=== PATIENT | female | born 1975 | race Hispanic/Latino ===

== ENCOUNTER 2017-05-22 10:48 | Emergency (ER) | payer OTHER ==
[~2017-05-22] VITALS: Ht 157.5 cm; Wt 67.3 kg
[~2017-05-22 10:48] MED LIST: CEPH500C PO; PROM25SU46 RC
[2017-05-22 11:02] VITALS: BP 121/72; PULSE 86; RESP 26; O2SAT 100
--- NOTE | 2017-05-22 11:38 | ED.REPORT ---
HPI-Abd Pain F 40 and Over Date of Service May 22, 2017 ED Provider: Moe Mancera MD Pt is a 41 year old female who is 37 weeks presenting to the ED from the [facility] due to suprapubic abdominal pain radiating to the back onset 3 weeks ago. The pain is currently in the left mid abdomen. Associated symptoms include weakness, trouble sleeping, trouble walking, nausea, vomiting, and diarrhea (for months). She was once 20 years ago, and denies any contractions, vaginal bleeding, fever, or any other symptoms at this time. Nursing Notes Stated Complaint: STOMACH PAIN/SENT FROM [facility] Chief Complaint: Female Abdominal Pain Nursing Notes Reviewed: Yes Allergies: Coded Allergies: codeine (Verified Allergy, Unknown, 10/29/16) Scheduled Cephalexin (Cephalexin) 500 Mg Capsule 500 MG PO TID Cephalexin (Keflex) 500 Mg Capsule 500 MG PO QID Promethazine HCl (Phenergan) 25 Mg Supp.rect 25 MG RC QID General Time Seen by MD: 11:14 Chief Complaint Abdominal pain Hx Obtained From: Patient Arrived By: Walk-in Sudden in Onset?: No Onset Occurred: More than a week ago... (3 weeks) Symptom Duration: Since onset Progression since Onset: Constant Location: : Diffuse Quality: Painful Severity: Current: Severe Severity: Maximum: Severe Recent Healthcare: No recent hospitalization, Recent doctor visit Similar Sx Previous: No Past Medical History Past Medical History Anxiety Chronic neck pain 37 weeks Reports: GERD Smoking History Never Smoker Social History Alcohol Use: Denies alcohol use Drug Use: THC Other Social History: Good social support Ambulatory Status Independent Review of Systems Constitutional: Reports: Weakness - generalized, Denies: Fever GI: Reports: Abdominal pain, Diarrhea, Nausea, Vomiting Female: Denies: Vaginal bleeding - abnl Complete sys rev & neg: except as marked. Physical Exam Vital Signs Vital Signs (First) Date Time Temp Pulse Resp B/P Pulse Ox O2 Delivery O2 Flow Rate FiO2 05/22/17 11:02 36.5 86 26 121/72 100 Room Air Initial VS: Reviewed Head / Eyes: Atraumatic, Normocephalic, PERRL ENT: Mucous membranes moist, Conjunctiva normal, No scleral icterus Extremities: Vascular intact, Neuro intact, No swelling, No tenderness Skin: Warm, Dry, No cyanosis Neurologic: Alert, Oriented, Nonfocal Psychiatric: Mood/affect normal, Behavior normal, Normal thought content General/Constitutional: Awake, Alert, Well appearing Respiratory / Chest: Breath sounds NL, Breath sounds = bilat, No respiratory distress, No rales, No rhonchi, No wheezing, No stridor Cardiovascular: Heart rate NL, Regular rhythm, Heart sounds NL, Peripheral circulation NL Abdomen: Non-tender, No guarding, No rebound Gravid uterus. Back: Atraumatic, Inspection NL Interpretation & Diagnostics Urine Tox: Positive for Opiates and Marijuana, also positive leukocytes Lab Results Interpretation Result Diagram: 05/22/17 1205 05/22/17 1205 Test 05/22/17 12:05 05/22/17 12:40 White Blood Count 6.8th/mm3 (3.8-10.1) Red Blood Count 3.57mil/mm3 (3.90-5.20) Hemoglobin 9.9g/dL (12.0-15.6) Hematocrit 30.6% (35.0-46.0) Mean Corpuscular Volume 85.7fL (81-100) Mean Corpuscular Hemoglobin 27.7pg (27.0-35.0) Mean Corpuscular Hemoglobin Concent 32.4% (32.0-37.0) Red Cell Distribution Width 14.0% (12.3-15.4) Platelet Count 306bil/L (150-400) Neutrophils (%) (Auto) 71.9% (40-74) Lymphocytes (%) (Auto) 21.9% (14-46) Monocytes (%) (Auto) 5.4% (4-12) Eosinophils (%) (Auto) 0.4% (0-5) Basophils (%) (Auto) 0.1% (0-3) Sodium Level 135mEq/L (134-144) Potassium Level 3.9mEq/L (3.5-5.2) Chloride Level 101mEq/L (97-108) Carbon Dioxide Level 18mmol/L (18-29) Blood Urea Nitrogen 7mg/dL (6-24) Creatinine 0.52mg/dL (0.57-1.00) Estimat Glomerular Filtration Rate 187mL/min (>59) Glucose Level 95mg/dL (60-99) Calcium Level 8.9mg/dL (8.5-10.1) Total Bilirubin 0.3mg/dL (0.0-1.2) Aspartate Amino Transf (AST/SGOT) 16U/L (0-50) Alanine Aminotransferase (ALT/SGPT) 11U/L (0-32) Alkaline Phosphatase 138U/L (25-150) Total Protein 6.4g/dL (6.4-8.4) Albumin 3.1g/dL (3.4-5.0) Lipase 28U/L (13-60) Urine Color Yellow (YELLOW) Urine Appearance Hazy (CLEAR,HAZY) Urine pH 6.5 (5.0-8.0) Urine Specific [place] 1.015 (1.003-1.035) Urine Protein Tracemg/dL (NEG,TRACE) Urine Glucose (UA) Negativemg/dL (NEGATIVE) Urine Ketones Negativemg/dL (NEGATIVE) Urine Occult Blood Negative (NEGATIVE) Urine Nitrite Negative (NEGATIVE) Urine Bilirubin Negative (NEGATIVE) Urine Urobilinogen Normalmg/dL (NORMAL) Urine Leukocyte Esterase Negative (NEGATIVE) Urine RBC 0-2/hpf (0-2) Urine WBC 0-5/hpf (0-5) Urine Epithelial Cells Many/hpf (NONE-MOD) Urine Crystals None seen (NONE SEEN) Urine Bacteria Many/hpf (NONE-FEW) Urine Hyaline Casts None/lpf (NONE) Urine Granular Casts None seen (NONE SEEN) Urine Waxy Casts None seen (NONE SEEN) Urine Red Blood Cell Casts None seen (NONE SEEN) Urine White Blood Cell Casts None seen (NONE SEEN) Urine Mucus None seen (None Seen) Urine Trichomonas None seen (NONE SEEN) Urine Yeast None (NONE SEEN) Urinalysis Comment None Urine Culture Reflexed Indicated Re-Eval/Medical Decision Med Decision/Clinical Course 41-year-old female 37 weeks presenting with lower abdominal pain 3 weeks. Reports it is constant and worse with movement. She reports she has been seen with this multiple times and has been told it is round ligament pain. She was seen by the birthing center and cleared today. She denies any vaginal bleeding, discharge, contractions. Her abdominal exam is nontender. Her labs are stable. Urine suggests possible UTI. She will be treated with Keflex for this. She is no signs of pyelonephritis. Suspect her pain is most likely round ligament pain. She will follow up with [facility]. Return precautions given. Re-Evaluation/Progress : Time of Eval: 13:11 Patient Status: Condition improved Re-Evaluation/Progress Note: Discussed plan for discharge. Pt understands and agrees with plan. Counseled Regarding: Diagnosis, Lab results, Need for follow-up, When/why to return to ED Discharge & Departure Primary Impression: Round ligament pain Additional Impression: UTI (urinary tract infection) Urinary tract infection type: site unspecified Hematuria presence: without hematuria Qualified Code: N39.0 - Urinary tract infection, site not specified Disposition: Home Discharge Condition All VS Reviewed: Yes Condition: Improved Additional Instructions: Your labs looked fine today, and your urine shows slight signs of a urinary tract infection. The most likely cause for your abdominal pain is round ligament pain. Take the antibiotic as prescribed for the infection, and take Tylenol as prescribed for your pain. Follow up with your OBGYN if your symptoms persist. Return to the ER for any back pain, vaginal bleeding, discharge, contractions, fever, vomiting, or other concerning symptoms. Referrals: Jace Miller MD (PCP) Phi Attestation Portions of this note were transcribed by Jennifer Dong. I, Dr. Mancera personally performed the history, physical exam and medical decision-making; I reviewed and confirmed the accuracy of the information in the transcribed note. Signed by: Phi Mcarthur, 05/22/2017 at 1320. copies to: Jace Miller MD, Ben M MD May 22, 2017 11:38 JENNIFER DONG May 22, 2017 11:46
[2017-05-22] MEDS ORDERED: LidocaineVisc 2%:Antacid 1:1 10 mL Syringe PO ONE (11:50)
[2017-05-22 12:20] LABS: BASOPHILS % (AUTO) 0.1 % (0-3); EOSINOPHILS % (AUTO) 0.4 % (0-5); MONOCYTES % (AUTO) 5.4 % (4-12); Mean Corpuscular Hemoglobin 27.7 pg (27.0-35.0); Mean Corpuscular Volume 85.7 fL (81-100); NEUTROPHILS % (AUTO) 71.9 % (40-74); Platelet Count 306 bil/L (150-400)
[2017-05-22] MEDS ORDERED: CEPH-512 PO (13:08)
[2017-05-22 13:30] LABS: APPEARANCE,URINE HAZY (CLEAR,HAZY); COLOR,URINE YELLOW (YELLOW); OCCULT BLOOD,URINE NEGATIVE (NEGATIVE); PH,URINE 6.5 (5.0-8.0); UROBILINOGEN,URINE NORMAL (NORMAL)
== END 2017-05-22 13:25 | disposition home or self-care (01) ==
LOC: SED 10:48
DX: O26.893 Other specified pregnancy related conditions, third trimester (principal); N39.0 Urinary tract infection, site not specified; Z3A.37 37 weeks gestation of pregnancy; K21.9 Gastro-esophageal reflux disease without esophagitis; G89.29 Other chronic pain; Z88.5 Allergy status to narcotic agent

== ENCOUNTER 2017-06-06 07:36 | Inpatient (IN) | payer OTHER ==
[~2017-06-06] VITALS: Ht 160 cm; Wt 75.3 kg
[~2017-06-06 07:36] MED LIST changes: +CEPH-512 PO
[2017-06-06] MEDS ORDERED: Lactated Ringer's 1,000 ML IV PRN (07:57)
[2017-06-06] MEDS ORDERED: Methylergonovine 0.2 mg/mL Inj IM PRN ×2 (08:00→18:10)
[2017-06-06] MEDS ORDERED: Penicillin G K Inj 5,000,000 UNITS in Dextrose 5% Minibag Plus 100 ML IV ONE (08:00)
[2017-06-06] MEDS ORDERED: Oxytocin 30 Units/500 mL LR 30 UNITS in IV Premix 1 EACH IV PRN ×2 (08:00→18:10)
[2017-06-06] MEDS ORDERED: fentaNYL-PF 50 mCg/mL 2 mL Inj IVPUSH PRN (08:00)
[2017-06-06] MEDS ORDERED: Hemorrhage Kit, Post Partum XX ONE ×2 (08:00→18:10)
[2017-06-06] MEDS ORDERED: Oxytocin 10 Unit/mL Inj IM PRN ×2 (08:00→18:10)
[2017-06-06] MEDS ORDERED: Carboprost 250 mCg/mL Inj IM PRN ×2 (08:00→18:10)
[2017-06-06] MEDS ORDERED: Sodium Chloride LOK Flush 10 mL Syringe IVFLUSH PRN (08:00)
[2017-06-06] MEDS ORDERED: PREN-12 PO (08:05)
[2017-06-06] MEDS ORDERED: VALA500T2 PO (08:05)
[2017-06-06] MEDS ORDERED: OMEP20TA24 PO ×2 (08:05→08:06)
[2017-06-06] MEDS ORDERED: PREN-107 PO (08:05)
[2017-06-06] MEDS ORDERED: Misoprostol 25 mCg/0.25 Tablet VAGINAL SCH (08:30)
[2017-06-06] MEDS: Lactated Ringer's 1,000 ML IV SCH ×2 (09:12→14:29)
[2017-06-06 09:19] LABS: Mean Corpuscular Hemoglobin 26.5 pg (27.0-35.0); Mean Corpuscular Volume 86.6 fL (81-100)
[2017-06-06] MEDS ORDERED: Misoprostol 25 mCg/0.25 Tablet VAGINAL ONE (09:45)
[2017-06-06] MEDS ORDERED: Penicillin G K Inj 3,000,000 UNITS in IV Premix 1 EACH IV SCH (12:30)
[2017-06-06] MEDS ORDERED: fentaNYL 2 mCg/mL-Bupivicaine 0.125% 100 mL Premix EPIDURAL ONE (15:41)
[2017-06-06] MEDS ORDERED: Phenylephrine/NS-PF 100 mCg/mL 5 mL Syringe IVPUSH PRN (15:45)
[2017-06-06] MEDS ORDERED: Lactated Ringer's 500 ML IV ONE (15:45)
[2017-06-06] MEDS ORDERED: EPHEDrine Sulfate 50 mg/mL Inj IVPUSH PRN (15:45)
[2017-06-06] MEDS ORDERED: Atropine 1 mg/10 mL (Code) Syringe IVPUSH PRN (15:45)
[2017-06-06] MEDS ORDERED: Lactated Ringer's 1,000 ML IV SCH ×2 (15:45→18:10)
[2017-06-06] MEDS ORDERED: Ondansetron 2 mg/mL 2 mL Inj IVPUSH PRN (15:45)
[2017-06-06] MEDS ORDERED: fentaNYL 2 mCg/mL-Bupiv 0.125% 100 ML EPIDURAL SCH (15:45)
--- NOTE | 2017-06-06 15:45 | PCM.HPANE ---
Patient Data Surgeon Admitting Provider:Gilmer Franks MD Attending Provider:Gilmer Franks MD Primary Care Physician:Jace Miller MD Other Provider: Reason for Visit Early Term Labor EARLY TERM LABOR Ht/WT & BMI Body Mass Index Allergies Coded Allergies: codeine (Verified Allergy, Unknown, 10/29/16) Past Anesthesia History Anesthesia History: Denies:: Abnormal Airway, Anesthesia Reactions, Difficult Intubation, Fam Anesthesia Reaction, Fam Malignant Hypertherm, Malignant Hyperthermia Diabetes History Hx Diabetes?: No Medications Hypertension Medication: Yes Home Meds Incl Beta Roger: No Reported Medications Omeprazole Magnesium (Prilosec Otc)20 Mg Tablet.dr20 Mg PO DAILY #1 PKG Ref 0 06/06/17 Valacyclovir HCl (Valtrex)500 Mg [id number] Mg PO DAILY 30 Days 06/06/17 Vit37/Iron/Folic Acid (Prenata Chewable Tablet)1 Each Tab.chew1 Each PO 06/06/17 Discontinued Reported Medications Omeprazole Magnesium (Prilosec Otc)20 Mg Tablet.dr20 Mg PO DAILY #1 PKG Ref 0 06/06/17 Discontinued Scripts Cephalexin 500 Mg [id number] Mg PO TID #15 CAPSULE Ref 0 Prov:Luis Lee MD 10/29/16 Promethazine HCl (Phenergan)25 Mg Supp.rect25 Mg RC QID NAUSEA #10 Prov:Luis Lee MD 10/29/16 History History of ENT Problems?: No HEENT History: Denies:: Abnormal Airway Cataracts Difficult Intubation Dysphagia Glaucoma Hearing Problem Sinus Problem TMJ Denture Type: None Teeth Condition: Within Normal Limits Hx of Heart Problems?: Yes Cardiovascular History: Positive for:: Atrial Fibrillation Hypertension Pacemaker Denies:: Congestive Heart Failure Hx of Respiratory Problem?: No Respiratory History: Denies:: Tuberculosis Hx Neurologic Problems?: No Hx of GI Problems?: Yes Gastrointestinal History: Positive for:: Heartburn Hx of Problems?: No Female Hx: Positive for:: Currently Hx Musculoskeletal Problems?: No Hx Surgeries?: Yes Hx Diabetes: No Hx Alcohol Use: NoHx Substance Use: Yes (marijuana daily) Smoking Status: Never Smoker Stop/Bang Treated for Sleep Apnea?: No Do You Have a CPAP Machine?: No HIREN Risk Assessment: Low Risk, <3 Yes Risk Assessment Category Category 1A: Patient has history of documented sleep apnea, and HAS NOT received any narcotic, sedative or anesthesia administration during this stay. Category 1B: Patient has history of documented sleep apnea, and HAS received any narcotic , sedative or anesthesia administration during this stay Category 2: Patient has SUSPECTED Obstructive Sleep Apnea, and HAS received any narcotic , sedative or anesthesia administration during this stay. Category 3: Patient has SUSPECTED Obstructive Sleep Apnea and HAS NOT received narcotic, sedative or anesthesia administration during this stay. Category 4: Outpatient in Procedural Areas with known sleep apnea or who screen positive for High Risk via the STOP/BANG questionnaire. Exam Exam General Appearance: Oriented X3 HEENT/AIRWAY: MP 2 Lungs: Normal Air Movement Heart: Regular Rate/Rhythm Meds/Labs/Diagnostics Admission Meds Current Medications Penicillin G Potassium 7291366 units/Dextrose/ Water 100 ml @ 240 mls/hr ONCE ONCE IV Last administered on 06/06/17 09:00; Start 06/06/17 at 08:00; Stop at 08:24; Status DC Penicillin G Potassium/ Dextrose [id number] units/Premix 50 ml @ 100 mls/hr Q4 IV Last administered on 06/06/17 13:54; Start 06/06/17 at 12:30 Lactated Ringer's (Lr) 1,000 ml @ 125 mls/hr Q8H IV Last administered on 14:29; Start 06/06/17 at 07:57 Misoprostol (Cytotec) 25 mcg Q3 VAGINAL Last administered on 06/06/17 10:09; Start 06/06/17 at 08:30 Labs Test 06/06/17 08:40 06/06/17 10:45 White Blood Count 9.7th/mm3 (3.8-10.1) Red Blood Count 3.36mil/mm3 (3.90-5.20) Hemoglobin 8.9g/dL (12.0-15.6) Hematocrit 29.1% (35.0-46.0) Mean Corpuscular Volume 86.6fL (81-100) Mean Corpuscular Hemoglobin 26.5pg (27.0-35.0) Mean Corpuscular Hemoglobin Concent 30.6% (32.0-37.0) Red Cell Distribution Width 14.2% (12.3-15.4) Platelet Count 307bil/L (150-400) Urine Opiates Screen Negative Urine Methadone Screen Negative Urine Barbiturates Screen Negative Urine Amphetamines Screen Negative Urine Benzodiazepines Screen Negative Urine Cocaine Metabolite Screen Negative Urine Cannabinoids Screen Positive Plan Impression Patient chart reviewed, patient interviewed and anesthestic plan with risks, benefits, and alternatives discussed, and informed consent obtained. ASA Physical Status: ASA2 Mod Systemic Disease Anesthetic Plan: Epidural Bene/Risks/Altern/Consents: Yes HP Complete Prior to Induction: Yes Juvenal Bravo MD Jun 06, 2017 15:45
[2017-06-06] MEDS ORDERED: Sodium Chloride LOK Flush 10 mL Syringe IVFLUSH SCH (16:30)
--- NOTE | 2017-06-06 17:12 | HP ---
[address] [address] HISTORY AND PHYSICAL PATIENT: SINAN GRESHAM : 1975 MR#: [id number] ADMIT: 06/06/2017 JOB ID: [id number] CORRECTED REPORT: [facility] NOTE: DATE: 06/06/2017 The patient is a 41-year-old, G2, P1 AB0, woman followed prenatally in my office, see record, and see dictated office note from May 20, 2017, for additional information. She has now reached 38 and 6/7 weeks of gestation, with fundal height 39 cm. Due to advanced maternal age, the patient underwent early genetic counseling, neural tube assessment, cell-free DNA assessment, and level two sonography, all negative. She also has undergone nonstress tests twice weekly towards end of and these have been okay. Note that the patient is group B strep test positive. She also carries positive antibodies, type 1 and 2 herpes and antiviral prophylaxis has been given during the third trimester. She did have early mild hypertension that yet otherwise blood pressures have been normal throughout except for one visit at 37 weeks when blood pressure 136/90, yet on repeat was 112/72. Note that there also has been some very mild proteinuria in the third trimester, up close to 300 mg of protein in 24 hours, yet then drifting downward from 2+ to 1 to 2+ to 1+ and now, most recently, trace proteinuria. There has not been felt to be preeclampsia specifically, and thus tracking has been ongoing. The patient ruptured membranes early this morning and amniotic fluid passage was clear. She then developed some contractions that gradually became stronger, yet cervical ripening and then labor induction were initiated, initially with Cytotec, then with Pitocin augmentation. Contractions became significantly stronger perhaps around 3 o'clock and she was checked and cervix noted to have changed from 2 cm up to 3 cm and now 100% effaced, and with head coming down to -2 station. She requested epidural for management and this was given as pain was becoming very difficult for her to deal with. In summary, then, the patient was admitted to [facility] on June 06, 2017, with spontaneous rupture of membranes at term. PHYSICAL EXAMINATION: Height 63 inches. Last weight and blood pressure in the office 164 pounds in 116/80 respectively (note that weight gain in 55 pounds). Neck: No thyromegaly. Lungs: Clear auscultation and percussion. Heart: Regular in rate and rhythm. Abdomen: Surgical scarring noted. Fundal height 39 cm. Positive heartbeat. Vertex presentation. Pelvic examination: Initial cervical exam in the 2 cm dilatation range, head high, grossly ruptured membranes, confirmed by ROM plus. DIAGNOSTIC DATA: Report unavailable at the time and place of this dictation. IMPRESSION: 1. A 38-6/7 weeks . 2. Spontaneous rupture of membranes, clear amniotic fluid. 3. Early labor on admission, now having ripened cervix and augmented labor with Pitocin, cervical dilatation gradually occurring, still in the latent phase of labor. 4. Epidural anesthesia on board at patient's request. 5. Penicillin prophylaxis occurring in light of group B strep test positivity. 6. 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 7. Rubella nonimmune status, for vaccination . 8. gender a surprise. 9. Advanced maternal age, note having received genetic counseling and various studies that were negative earlier in . 10. Borderline hypertension early in , blood pressures typically normal subsequently. 11. Very mild proteinuria earlier in the third trimester, having reduced on dipstick, check subsequently, uncertain etiology, not suspected to have preeclampsia. 12. Anxiety, having used hydroxyzine in the past. 13. Chronic pain, having used Vicodin occasionally for neck pain with pinched nerve reportedly related to bone spur. 14. SIBO has managed at the [facility], reportedly stable with probiotics. 15. Up to date with Tdap, received on May 31, 2017, although later then recommended. 16. CODEINE intolerance (nausea and vomiting). 17. Reproductive history: a. 1st --40 week vaginal delivery, 8 pounds 6 ounce baby, pushed x3 hours and forceps also utilized, received epidural? b. 2nd --current. 18. Surgical history; a. Reproductive history--see history previously reported. b. Cholecystectomy. c. Bunionectomy. 19. Depression history. 20. Migraine history, past-reported hydrocodone use at times. 21. ASCUS Pap early in , 11/24, although high-risk HPV test negative. 22. History of possible chlamydia infection many years ago. 23. History of possible bacterial vaginosis many years ago. 24. Family history of diabetes (mother and many other family members), hypertension (mother and many other family members), twins (mother is a twin), breast cancer, (maternal aunt), liver problems (reportedly related to alcohol and drugs). PLAN: The patient is admitted to [facility] at almost 39 weeks of gestation with spontaneous rupture of membranes, still in the latent phase of labor, cervix changing, with antibiotic prophylaxis and epidural anesthesia on board. Pitocin therapy occurring, IUPC in place. Corrected by VENITA 06/10/17 at 10:49am Report type.
[2017-06-06] MEDS ORDERED: TdaP Vaccine 0.5 mL Inj IM ONE (18:10)
[2017-06-06] MEDS ORDERED: Benzocaine (Dermoplast) 20% 60 Gm Spray TOPICAL PRN (18:10)
[2017-06-06] MEDS ORDERED: Measles-Mumps-Rubella Vaccine 0.5 mL Inj SUBQ ONE (18:10)
[2017-06-06] MEDS ORDERED: Witch Hazel-Glycerin Pads TOPICAL PRN (18:10)
[2017-06-06] MEDS ORDERED: Influenza (Adult) Vaccine 0.5 mL Syringe IM ONE (18:10)
[2017-06-06] MEDS ORDERED: LANOlin HPA 7 Gm Ointment TOPICAL PRN (18:10)
--- NOTE | 2017-06-06 20:43 | OP ---
[address] [address] OPERATIVE REPORT PATIENT: SINAN GRESHAM : 1975 MR#: [id number] ADMIT: 06/06/2017 JOB ID: [id number] DATE OF SURGERY: 06/06/2017 SURGEON: Gilmer Franks MD PREOPERATIVE DIAGNOSIS(ES): POSTOPERATIVE DIAGNOSIS(ES): [facility] NOTE: The patient was admitted this morning with spontaneous rupture of membranes, clear fluid, early uterine contractions at 38-6/7 weeks of gestation. Contractions gradually became stronger, Pitocin augmentation was also provided, epidural anesthesia for pain management, and penicillin G prophylaxis in setting of Group B Strep positivity. Labor progress ensued, with heart tracing okay, blood pressures somewhat elevated at times, although no antihypertensive medications required, and there was no specific evidence for preeclampsia. Once active phase of labor was reached, cervical dilatation progress occurred more rapidly, 7 cm, then 10 cm. Second stage of labor was very brief, with the patient pushing well, head crowned, followed by delivery of the head, and then directly by the shoulders, body, and extremities. Note that there was loose nuchal cord that was easily reduced over the anterior shoulder as it delivered. The baby was active and crying and vigorous and handed to mother for bonding. After one minute umbilical cord was clamped and cut and cord blood was obtained for routine studies. Placenta with membranes were then spontaneously expelled, intact. Uterus contracted well with massage plus intravenous Pitocin infusion. Blood loss was in the 250 cc range. Betadine solution was used to cleanse the vulvovaginal region and only laceration was that of rather shallow second-degree perineal fourchette laceration, easily closed with 3-0 chromic suture in short running stitch. Hemostasis was noted to be complete and there was no hematoma formation. Final rectal examination demonstrated no stitches or lacerations. Instrument, needle and sponge counts were correct. Procedures were complete. It certainly is anticipated that mother and baby will do very well in the time frame. We will follow patient's blood pressures which were a little bit elevated at times during the labor, especially pain related. The certified dialysis technician will be notified of marijuana use or at least within the environment as identified on a positive drug screen on admission, although patient had not reported any marijuana use or exposure earlier during the . The certified dialysis technician will be notified that the patient did receive appropriate group B Strep antibiotic prophylaxis. Finally, patient's blood count will be followed up on in light of admission anemia, hemoglobin 8.9, and her anxiety and depression will also be tracked over time with potential for depression development. NADEEM
[2017-06-07 07:05] LABS: Mean Corpuscular Hemoglobin 27.3 pg (27.0-35.0); Mean Corpuscular Volume 85.5 fL (81-100)
[2017-06-07] MEDS ORDERED: Measles-Mumps-Rubella Vaccine 0.5 mL Inj SUBQ ONE (10:31)
--- NOTE | 2017-06-07 14:39 | NUR ---
Social Work Note-attempted assessment: SW order received from . SW went to family and spoke with MARIANNA Mora. RN states that this is not a good time as MOB, RN reports no immediate concerns and requests that SW come back tomorrow morning. SW to follow up with assessment tomorrow. RAYA Carlson
--- NOTE | 2017-06-07 18:16 | PCM.ANEP1 ---
Post Anesthesia PACU Phase 1 Assessment Anesthetic Administered: Epidural Level of Alertness: Awake, talking LO's with Equal Strength: Yes Pain: No Pain Scale Score: 4 Nausea or Vomiting: No CV Function & Hydration Stable: No Airway Device: N/A Oxygen Delivery: Room Air Lungs: Normal Air Movement Dermatome Level: Full Sensation PACU Phase 2 Assessment Complications: No Follow up Care: N/A Patient Instructions Provided: N/A Roe Hearn MD Jun 07, 2017 18:16
--- NOTE | 2017-06-07 19:11 | PCM.DIOB ---
Obstetrical Disch Instruction Dates of Hospitalization Date of Hospital Admission Jun 06, 2017 at 07:45 Providers Admitting Physician: Gilmer Franks MD Primary Care Physician: Jace Miller MD Attending Physician: Gilmer Franks MD Discharge Diagnosis Problems: (1) Status: Acute ICD Code: Z33.1 Diet Discharge Diet: No restrictions Activity Discharge Activity-General: Pelvic Rest for 6 weeks Dressing and Incisional Care Hygiene: May shower, Perineal care, Sitz bath, Dermoplast spray, Witch Melly pads, Ice Follow Up Plan Follow-up appointment: Weeks (Follow up in 6 weeks for checkup with Dr. Franks.) Call your provider for: Fever or Chills, Shortness of breath, Heavy vaginal bleeding, Red painful breasts Gilmer Franks MD Jun 07, 2017 19:11
[2017-06-07 19:14] VITALS: BP 137/83; PULSE 85; RESP 19
[2017-06-07] MEDS ORDERED: DOCU-41 PO (19:15)
[2017-06-07] MEDS ORDERED: IBUP-1827 PO (19:15)
[2017-06-07] MEDS ORDERED: FERR-83 PO (19:15)
--- NOTE | 2017-06-08 12:57 | NUR ---
Family Assessment Date/time: 06/08/2017 MOB and FOB and Baby: MOB is Richelle Cochran, FOB is Matt Cochran. Baby is unnamed at this time. Reason for SW consult: Baby and MOB tested positive for Marijuana. Current living situation: DENNIS lives in [place] with her Matt, her son Nikhil (20), and her step children Hawk (3) and Toy (11). Previous children/in who's care/CPS involvement: Substance abuse hx: Marijuana on a weekly basis. MOB states that she is unsure if she will continue her marijuana use now that she is . Mental Health hx and current issues: MOB states she has a hx of depression and anxiety. Pt sates that she has been stable on her medications that she took for anxiety prior to her and she is also enrolled in [facility] outpt counseling that she participates in once a month. Source of income/state assistance: DENNIS is not working and plans to stay home with baby. MOB is enrolled with [employer] and food stamps. DV/abuse hx: MOB denies any current or hx of DV/abuse. MOB states she feels safe at home. Supports: DENNIS identifies her father and son are her primary supports outside of her . Special healthcare needs/disabilities for baby: N/A Involvement/Referral to [facility] [place] programs: DENNIS is currently enrolled in WIC. Other: Per RN request, SW spoke with BALTAZARJack via t/c. EDMAR expressed frustrations of MOB yelling at him in front of the baby today and often yells at him instead of communicating more appropriately. EDMAR explained that he wanted it documented that he tried to de-escalate the situation instead of contributing to the conflict. EDMAR states that he went to [place] for work on Wednesday and it was previously discussed and agreed upon, but when EDMAR returned to the hospital, MOB was angry. EDMAR states that he has called police in the past in order to have it be on record that he was not contributing to the verbal confrontation in the home on other occasions. EDMAR made aware that CPS will be called due to baby and MOB positive tox screen for marijuana. EDMAR wanted this conversations and his concerns be communicated to CPS. FOB denies any concerns with baby physical safety. LOOM STARTER advised EDMAR to call CPS himself as well if he ever felt like baby or any other children in the home were unsafe. Assessment: Per RN, MOB is bonding with baby and is appropriate with caregiving. RN and MOB did state issues with , but RN denies any other concerns at this time. RN did inform LOOM STARTER that FOB wanted to speak with LOOM STARTER, see above for further details. Disposition/plan: Call to CPS has been made, intake #[id number]. DENNIS was provided with resource packet including more information on Maternal Support services, food programs, post depression signs and symptoms, counseling and landing man information. MOB states that her landing man that she has chosen is Dr. Garcia who was also the landing man for her older son. MOB denies any other needs or concerns. FOB also reminded of these resources that have been provided to MOB. FOB denies any other needs or concerns at this time. MOB reminded to request LOOM STARTER if any other needs should arise. RAYA Steel Addendum: 06/08/17 at 1409 by REJI PERKINS SS Per CPS hand worker, the intake will NOT screen in. RAYA Steel
--- NOTE | 2017-06-08 18:46 | DIS ---
[address] [address] DISCHARGE SUMMARY PATIENT: SINAN GRESHAM : 1975 MR#: [id number] ADMIT: 06/06/2017 JOB ID: [id number] DIS: 06/07/2017 DISCHARGE DIAGNOSES: 1. 38 and 6/7 weeks gestation, delivered. 2. Spontaneous rupture of membranes. 3. Advanced maternal age. PROCEDURES PERFORMED DURING HOSPITALIZATION: 1. Vaginal delivery. 2. Repair of perineal laceration. 3. Epidural anesthesia. HOSPITAL COURSE: The patient was admitted to [facility] on June 06, 2017, on which day she underwent procedures as described. During the time frame, she did well, remaining afebrile, with stable vitals overall, although borderline to mildly elevated blood pressures at times that did not require medication. She voided and ambulated and bleeding was okay. Note, there was no leg pain or shortness of breath. Admitting hemoglobin of 8.9, and hemoglobin was 9.0, and the patient was not dizzy. The patient was officially discharged on the first day, i.e., on June 07, 2017, and her request was granted. It did look like the patient's baby would stay admitted to help with feeding issues and the patient thus will remain at boarder status for the time being. DISCHARGE PROGRAM: Patient will call p.r.n., yet otherwise she will follow up at six weeks for checkup. She will observe pelvic rest for six weeks. DISCHARGE MEDICATIONS: Include: 1. Ibuprofen for pain. 2. Colace for stool softener if needed (patient does have SIBO which can predispose her to loose stools and she may not need the stool softener). 3. Ferrous sulfate 325 mg p.o. b.i.d. (prescriptions written). She will also use vitamin daily of which she has a supply at home. Note that no blood pressure medication was needed. Gilmer Franks MD [facility]ITAL[facility]
== END 2017-06-07 21:15 | disposition home or self-care (01) | DRG 560 ==
LOC: FBCO 07:36 → FBC 07:45
PROVIDERS: ADMIT Obstetrics & Gynecology; ATTEND Obstetrics & Gynecology
PROC: 10E0XZZ Delivery of Products of Conception, External Approach (ICD-10-PCS; principal; 2017-06-06)
PROC: 0KQM0ZZ Repair Perineum Muscle, Open Approach (ICD-10-PCS; 2017-06-06)
DX: O70.1 Second degree perineal laceration during delivery (principal); Z37.0 Single live birth; O99.824 Streptococcus B carrier state complicating childbirth; Z3A.38 38 weeks gestation of pregnancy; O69.81X0 Labor and delivery complicated by cord around neck, without compression, not applicable or unspecified